=== PATIENT | female | born 1985 | race Caucasian/White ===

== ENCOUNTER 2018-04-26 15:02 | Inpatient (IN) | payer BC ==
[2018-04-26 15:55] LABS: ADD MAN DIFF? NO
[2018-04-26 15:59] LABS: BASOPHILS % 0.3 % (0.0-2.0); EOSINOPHILS # 0.1 10^3/ul (0.0-0.5); HEMATOCRIT 36.8 % (37.0-47.0); HEMOGLOBIN 12.8 g/dl (12.0-16.0); LYMPHOCYTES # 2.2 10^3/ul (0.8-2.9); LYMPHOCYTES % 23.3 % (15.0-51.0); MEAN CORPUSCULAR HGB CONC 34.8 g/dl (32.0-37.0); MEAN CORPUSCULAR VOLUME 86.4 fl (82.0-101.0); MEAN PLATELET VOLUME 10.5 fl (7.4-10.4); MONOCYTE # 0.7 10^3/ul (0.3-0.9); MONOCYTES % 6.9 % (0.0-11.0); NEUTROPHIL # 6.6 10^3/ul (1.6-7.5); PLATELET COUNT 169 10^3/UL (140-415); RED BLOOD COUNT 4.26 10^6/ul (4.20-5.40); RED CELL DISTRIBUTION WIDTH 13.2 % (11.5-14.5)
[2018-04-26 15:59] LABS: WHITE BLOOD COUNT 9.6 10^3/ul (4.8-10.8)
[2018-04-26 16:14] LABS: ANION GAP 13 (8-16); CARBON DIOXIDE 21 mmol/L (21-31); CHLORIDE 108 mmol/L (97-110); SODIUM 138 mmol/L (135-144)
[2018-04-26 16:21] LABS: INR 0.99; PROTIME 13.2 Sec (11.9-14.9)
[2018-04-26 16:22] LABS: PARTIAL THROMBOPLASTIN TIME 29.4 Sec (25.0-35.0)
[2018-04-26 16:28] LABS: ALANINE AMINOTRANSFERASE 18 IU/L (13-69); ALKALINE PHOSPHATASE 189 IU/L (42-121); ASPARTATE AMINO TRANSFERASE 21 IU/L (15-46); BLOOD UREA NITROGEN 10 mg/dl (7-20); CALCIUM 9.5 mg/dl (8.4-10.2); CREATININE 0.64 mg/dl (0.44-1.00); GLUCOSE 81 mg/dl (70-220); URIC ACID 5.6 mg/dl (3.1-7.9)
[2018-04-26 16:29] LABS: ALBUMIN 3.2 g/dl (3.3-4.9); ALBUMIN/GLOBULIN RATIO 0.94; BILIRUBIN,INDIRECT 0.1 mg/dl (0-1.1); BILIRUBIN,TOTAL 0.1 mg/dl (0.2-1.3); TOTAL PROTEIN 6.6 g/dl (6.1-8.1)
[2018-04-26 17:09] LABS: ADD UMIC YES; UR AMORPHOUS CRYSTAL FEW /HPF (NONE SEEN); UR ASCORBIC ACID NEGATIVE (NEGATIVE); UR BACTERIA FEW /HPF (NONE SEEN); UR BILIRUBIN (Dip) NEGATIVE (NEGATIVE); UR BLOOD (Dip) 3+ mg/dL (NEGATIVE); UR CLARITY CLEAR (CLEAR); UR COLOR STRAW (YELLOW); UR GLUCOSE (Dip) NEGATIVE (NEGATIVE); UR KETONES (Dip) NEGATIVE (NEGATIVE); UR LEUKOCYTE ESTERASE (Dip) 1+ Leu/ul (NEGATIVE); UR NITRITE (Dip) NEGATIVE (NEGATIVE); UR RBC 1 /HPF (0-5); UR SPECIFIC GRAVITY (Dip) 1.006 (1.003-1.030); UR SQUAMOUS EPITHELIAL CELL MODERATE /HPF (FEW); UR TOTAL PROTEIN (Dip) NEGATIVE (NEGATIVE); UR UROBILINOGEN (Dip) NEGATIVE (NEGATIVE); UR WBC 6 /HPF (0-5)
[2018-04-26] MEDS ORDERED: MISOPROSTOL 200 MCG TAB PR (19:30)
[2018-04-26] MEDS ORDERED: METHYLERGONOVINE 0.2 MG INJ IM (19:30)
[2018-04-26] MEDS ORDERED: OXYTOCIN 30 UNITS/LR 500 ML IV (19:30)
[2018-04-26] MEDS ORDERED: CARBOPROST 250 MCG INJ IM (19:30)
[2018-04-26] MEDS: LACTATED RINGER'S 1,000 ML IV* (19:32)
[2018-04-26] MEDS: AMPICILLIN 2 GM/NS (PMX) 100 ML IV (19:33)
[2018-04-26 21:09] LABS: HEPATITIS B SURFACE ANTIGEN NEGATIVE (NEGATIVE)
[2018-04-26] MEDS: BUTORPHANOL 2 MG INJ IV (23:07)
[2018-04-26] MEDS: AMPICILLIN 1 GM/NS (PMX) 50 ML IV (23:39)
[2018-04-27] MEDS ORDERED: FENTAnyl 2MCG/ML-ROPIV 0.2% 100 ML (01:45)
[2018-04-27] MEDS: LACTATED RINGER'S 1,000 ML IV* ×3 (02:08→22:07)
[2018-04-27] MEDS ORDERED: ONDANSETRON 4 MG INJ IV (02:30)
[2018-04-27] MEDS ORDERED: DIPHENHYDRAMINE 50 MG INJ IV (02:30)
[2018-04-27] MEDS ORDERED: EPHEDrine SULFATE 50 MG/5 ML SYG IV (02:30)
[2018-04-27] MEDS ORDERED: NALOXONE (0.4 MG/ML) INJ IV (02:30)
[2018-04-27] MEDS: AMPICILLIN 1 GM/NS (PMX) 50 ML IV ×5 (04:21→20:00)
[2018-04-27] MEDS: FENTAnyl 2MCG/ML-ROPIV 0.2% 100 ML BAG EPI ×2 (11:18→19:16)
[2018-04-27 15:00] LABS: RAPID PLASMA REAGIN NONREACTIVE (NR)
[2018-04-27] MEDS: OXYTOCIN 30 UNITS/LR 500 ML IV ×2 (22:42→22:57)
[2018-04-27] MEDS: LIDOCAINE 1% (MPF) 30 ML INJ INJ (22:52)
[2018-04-28] MEDS ORDERED: BENZOCAINE 20% 56 ML SPRAY TOP (01:30)
[2018-04-28] MEDS ORDERED: LANOLIN 7 GM TUBE TOP (01:30)
[2018-04-28] MEDS ORDERED: NACL 0.9% 3 ML SYG IV (01:30)
[2018-04-28] MEDS ORDERED: MISOPROSTOL 200 MCG TAB PR (01:30)
[2018-04-28] MEDS ORDERED: OXYCODONE/ASPIRIN (4.88/325) TAB PO (01:30)
[2018-04-28] MEDS ORDERED: WITCH HAZEL/GLYCERIN PAD PR (01:30)
[2018-04-28] MEDS ORDERED: ACETAMINOPHEN 325 MG TAB PO (01:30)
[2018-04-28] MEDS ORDERED: CARBOPROST 250 MCG INJ IM (01:30)
[2018-04-28] MEDS ORDERED: METHYLERGONOVINE 0.2 MG INJ IM (01:30)
[2018-04-28] MEDS ORDERED: OXYTOCIN 30 UNITS/LR 500 ML IV (01:30)
[2018-04-28] MEDS ORDERED: DIBUCAINE 1% 30 GM OINT PR (01:30)
[2018-04-28 01:32] LABS: ADD MAN DIFF? NO
[2018-04-28 01:39] LABS: BASOPHILS % 0.2 % (0.0-2.0); EOSINOPHILS % 0.1 % (0.0-7.0); HEMATOCRIT 33.2 % (37.0-47.0); HEMOGLOBIN 11.5 g/dl (12.0-16.0); LYMPHOCYTES # 1.6 10^3/ul (0.8-2.9); LYMPHOCYTES % 9.6 % (15.0-51.0); MEAN CORPUSCULAR HEMOGLOBIN 30.5 pg (29.0-33.0); MEAN CORPUSCULAR HGB CONC 34.6 g/dl (32.0-37.0); MEAN CORPUSCULAR VOLUME 88.1 fl (82.0-101.0); MEAN PLATELET VOLUME 10.6 fl (7.4-10.4); NEUTROPHIL # 14.2 10^3/ul (1.6-7.5); NEUTROPHILS % 83.6 % (39.0-77.0); PLATELET COUNT 136 10^3/UL (140-415); RED BLOOD COUNT 3.77 10^6/ul (4.20-5.40); RED CELL DISTRIBUTION WIDTH 13.3 % (11.5-14.5)
[2018-04-28] MEDS: OXYCODONE/ASPIRIN (4.88/325) TAB PO (01:39)
[2018-04-28 02:03] LABS: ALANINE AMINOTRANSFERASE 20 IU/L (13-69); ALBUMIN 2.6 g/dl (3.3-4.9); ALBUMIN/GLOBULIN RATIO 0.89; ALKALINE PHOSPHATASE 164 IU/L (42-121); ANION GAP 12 (8-16); ASPARTATE AMINO TRANSFERASE 34 IU/L (15-46); BILIRUBIN,INDIRECT 0.3 mg/dl (0-1.1); BILIRUBIN,TOTAL 0.3 mg/dl (0.2-1.3); BLOOD UREA NITROGEN 7 mg/dl (7-20); CALCIUM 8.7 mg/dl (8.4-10.2); CARBON DIOXIDE 21 mmol/L (21-31); CHLORIDE 106 mmol/L (97-110); CREATININE 0.66 mg/dl (0.44-1.00); GLUCOSE 102 mg/dl (70-220); POTASSIUM 3.5 mmol/L (3.5-5.1); SODIUM 135 mmol/L (135-144); TOTAL PROTEIN 5.5 g/dl (6.1-8.1); URIC ACID 6.1 mg/dl (3.1-7.9)
[2018-04-28 02:04] LABS: LACTATE DEHYDROGENASE 592 IU/L (313-618)
[2018-04-28 02:04] LABS: INR 1.13; PROTIME 14.7 Sec (11.9-14.9); PT RATIO 1.1
[2018-04-28 02:05] LABS: PARTIAL THROMBOPLASTIN TIME 32.9 Sec (25.0-35.0)
[2018-04-28 02:36] LABS: ADD UMIC YES; UR ASCORBIC ACID NEGATIVE (NEGATIVE); UR BACTERIA FEW /HPF (NONE SEEN); UR BILIRUBIN (Dip) NEGATIVE (NEGATIVE); UR BLOOD (Dip) 3+ mg/dL (NEGATIVE); UR CLARITY CLEAR (CLEAR); UR COLOR YELLOW (YELLOW); UR GLUCOSE (Dip) NEGATIVE (NEGATIVE); UR KETONES (Dip) 1+ mg/dL (NEGATIVE); UR LEUKOCYTE ESTERASE (Dip) NEGATIVE Leu/ul (NEGATIVE); UR NITRITE (Dip) NEGATIVE (NEGATIVE); UR RBC > 182 /HPF (0-5); UR SPECIFIC GRAVITY (Dip) 1.013 (1.003-1.030); UR TOTAL PROTEIN (Dip) NEGATIVE (NEGATIVE); UR UROBILINOGEN (Dip) NEGATIVE (NEGATIVE); UR WBC 9 /HPF (0-5)
[2018-04-28] MEDS: OXYTOCIN 30 UNITS/LR 500 ML IV (04:49)
[2018-04-28] MEDS: ACETAMINOPHEN 325 MG TAB PO (05:00)
[2018-04-28] MEDS: IBUPROFEN 600 MG TAB PO ×4 (06:12→23:31)
[2018-04-28 07:22] LABS: ADD MAN DIFF? NO
[2018-04-28 07:29] LABS: BASOPHIL # 0.1 10^3/ul (0.0-0.1); BASOPHILS % 0.3 % (0.0-2.0); EOSINOPHILS % 0.3 % (0.0-7.0); HEMATOCRIT 32.3 % (37.0-47.0); LYMPHOCYTES # 2.4 10^3/ul (0.8-2.9); LYMPHOCYTES % 15.8 % (15.0-51.0); MEAN CORPUSCULAR HEMOGLOBIN 29.8 pg (29.0-33.0); MEAN CORPUSCULAR HGB CONC 34.1 g/dl (32.0-37.0); MEAN CORPUSCULAR VOLUME 87.5 fl (82.0-101.0); MEAN PLATELET VOLUME 10.7 fl (7.4-10.4); MONOCYTES % 6.9 % (0.0-11.0); NEUTROPHIL # 11.5 10^3/ul (1.6-7.5); PLATELET COUNT 141 10^3/UL (140-415); RED BLOOD COUNT 3.69 10^6/ul (4.20-5.40); RED CELL DISTRIBUTION WIDTH 13.6 % (11.5-14.5)
[2018-04-28 07:29] LABS: WHITE BLOOD COUNT 15.1 10^3/ul (4.8-10.8)
[2018-04-28] MEDS: SENNA/DOCUSATE NA (8.6MG/50MG) TAB PO (13:10)
[2018-04-29] MEDS: IBUPROFEN 600 MG TAB PO ×2 (05:40→11:27)
[2018-04-29] MEDS: OXYCODONE/ASPIRIN (4.88/325) TAB PO (07:04)
[2018-04-30] MEDS ORDERED: DIPHTH/TET/ACEL PERTUSS (ADULT) 0.5 ML VIAL IM* (09:00)
== END 2018-04-29 15:32 | disposition home or self-care (01) | DRG 775 ==
LOC: OBT 15:02 → L-D 04-27 06:35 → PP1 04-28 01:58 → L-D 15:02 → OBT 17:15 → L-D 17:15
PROVIDERS: Obstetrics & Gynecology
PROC: 10E0XZZ Delivery of Products of Conception, External Approach (ICD-10-PCS; principal; 2018-04-27)
PROC: 0W8NXZZ Division of Female Perineum, External Approach (ICD-10-PCS; 2018-04-27)
DX: O48.0 Post-term pregnancy (principal); Z37.0 Single live birth; Z3A.40 40 weeks gestation of pregnancy; O69.81X0 Labor and delivery complicated by cord around neck, without compression, not applicable or unspecified
CPT/HCPCS: 62319; 76815; 76818; 80053; 81001; 83615; 84560; 85025; 85384; 85610; 85730; 86592; 86900; 86901; 87340; 99464